=== PATIENT | female | born 1955 | race Caucasian/White ===

== ENCOUNTER 2019-06-18 08:00 | Outpatient (CLI) | payer SELFPAY ==
--- NOTE | 2019-06-19 16:03 | XRAY Report ---
Reason: RIGHT HAND PAIN Procedure Date: 06/18/2019 Accession Number: [id number] / [id number] Procedure: WCP - Hand 3 View RT CPT Code: Final Report FULL RESULT: EXAM: RIGHT HAND RADIOGRAPHY EXAM DATE: 06/18/2019 03:16 PM. CLINICAL HISTORY: RIGHT HAND PAIN. Fall onto right hand. COMPARISON: None. TECHNIQUE: 4 views. FINDINGS: Bones: Acute spiral type fracture of the midshaft of the right third metacarpal with a large 2.9 cm ulnar butterfly fracture fragment which is mildly (3 mm) displaced in the ulnar direction. No overall abnormal angulation. No other fracture or focal bone lesion. Joints: Normal. No subluxations. Soft Tissues: No significant soft tissue swelling. IMPRESSION: Mildly displaced acute spiral fracture of the midshaft of the right third metacarpal with large butterfly fragment. RADIA
== END 2019-06-18 23:59 | disposition home or self-care (01) ==
LOC: DI.WCP 08:00
PROVIDERS: ATTEND Family Medicine
DX: S62.322A Displaced fracture of shaft of third metacarpal bone, right hand, initial encounter for closed fracture (principal)

== ENCOUNTER 2019-07-25 07:45 | Outpatient (CLI) | payer SELFPAY ==
--- NOTE | 2019-07-25 18:33 | XRAY Report ---
Reason: DISPLACED FRACTURE RIGHT HAND METACARPAL Procedure Date: 07/25/2019 Accession Number: [id number] / [id number] Procedure: WCP - Hand 3 View RT CPT Code: Final Report FULL RESULT: PROCEDURE: Hand 3 View RT INDICATIONS: DISPLACED FRACTURE RIGHT HAND METACARPAL TECHNIQUE: 3 views of the hand(s) acquired. COMPARISON: Plain films dated 06.18.19 FINDINGS: Bones: There is a healing mildly displaced comminuted fracture of the midportion of the third metacarpal. Soft tissues: No suspicious soft tissue calcifications. IMPRESSION: Healing third metacarpal fracture. Reviewed by: Mery Barbour MD on 07/25/2019 6:32 PM PDT Approved by: Mery Barbour MD on 07/25/2019 6:32 PM PDT Station ID: [id number]
== END 2019-07-25 23:59 | disposition home or self-care (01) ==
LOC: DI.WCP 07:45
PROVIDERS: ATTEND Orthopaedic Surgery
DX: S62.322D Displaced fracture of shaft of third metacarpal bone, right hand, subsequent encounter for fracture with routine healing (principal)

== ENCOUNTER 2021-04-08 11:07 | Emergency (ER) | payer MEDICARE, OTHER ==
[2021-04-08] MEDS ORDERED: ACETAMINOPHEN 500 MG TABLET PO STA (11:23)
--- NOTE | 2021-04-08 11:24 | ED Physician Documentation ---
PD HPI HEAD INJURY - Stated complaint Stated Complaint: FALL,HEADACHE,NECK PX - Chief complaint Chief Complaint: Trauma Hd/Nk - History obtained from History obtained from: Patient - Additional information Additional information: Slipped and fell on the ice hitting the back of her head on the ground about 45 minutes ago. She has a severe headache. No loss of consciousness. Also complains of upper neck pain. No other injuries. She was also a little worried about her recent cataract repair after hitting her head but her vision is unchanged. Review of Systems Constitutional: denies: Fever, Chills Cardiac: denies: Chest pain / pressure, Palpitations Respiratory: denies: Dyspnea, Cough GI: denies: Nausea Neurologic: reports: Headache, Head injury. denies: LOC PD PAST MEDICAL HISTORY - Past Medical History Cardiovascular: None Respiratory: None Endocrine/Autoimmune: None GI: Diverticulitis : None HEENT: None Psych: None Musculoskeletal: None Derm: None - Past Surgical History General: Cholecystectomy, Colonoscopy /[employer]: section - Present Medications Home Medications: Ambulatory Orders Medication Instructions Recorded Confirmed No Known Home Medications 04/24/13 04/24/13 - Allergies Allergies/Adverse Reactions: Allergies Allergy/AdvReac Type Severity Reaction Status Date / Time No Known Drug Allergies Allergy Verified 04/08/21 11:16 PD ED PE NORMAL - Vitals Vital signs reviewed: Yes - General General: Alert and oriented X 3, No acute distress - HEENT HEENT: PERRL, EOMI - Neck Neck: Other (Mild tenderness to the upper C-spine, on my examination she is in a collar and this is maintained pending imaging.) - Neuro Neuro: Alert and oriented X 3, 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 After the completion of CT imaging she was feeling much better with her headache going now from severe previously to only mild. No persistent neck tenderness and on reexamination after discontinuation of the cervical collar at 12:08 PM she had full range of m otion of her neck. Departure - Departure Disposition: 01 Home, Self Care Clinical Impression: Concussion Qualifiers: Encounter type: initial encounter Loss of consciousness presence/duration: without LOC Qualified Code(s): S06.0X0A - Concussion without loss of consciousness, initial encounter Injury of head and neck Qualifiers: Encounter type: initial encounter Qualified Code(s): S09.90XA - Unspecified injury of head, initial encounter; S19.9XXA - Unspecified injury of neck, initial encounter Condition: Good Record reviewed to determine appropriate education?: Yes Instructions: ED Head Injury Closed
--- NOTE | 2021-04-08 11:49 | CT Report ---
PROCEDURE: HEAD WO INDICATIONS: Fall with head injury. TECHNIQUE: Noncontrast 4.5 mm thick angled axial sections acquired from the foramen magnum to the vertex. For r adiation dose reduction, the following was used: automated exposure control, adjustment of mA and/or kV according to patient size. COMPARISON: None. FINDINGS: Image quality: Excellent. CSF spaces: Basal cisterns are patent. No extra-axial fluid collections. Ventricles are normal in size and shape. Brain: No midline shift. No intracranial masses or hemorrhage. [place]-white matter interface is norm al. Skull and face: Calvarium and visualized facial bones are intact, without suspicious lesions. Left p arietal scalp contusion. Sinuses: Mucosal thickening noted in the left maxillary sinus and the left sphenoid sinus. The mastoi ds are clear. IMPRESSION: No acute intracranial disease process. Reviewed by: Elida Mendoza MD, PhD on 04/08/2021 11:48 AM PST Approved by: lEida Mendoza MD, PhD on 04/08/2021 11:48 AM PST Station ID: [id number]
--- NOTE | 2021-04-08 11:58 | CT Report ---
PROCEDURE: CERVICAL SPINE WO INDICATIONS: Fall with neck injury TECHNIQUE: Noncontrast 3 mm thick sections acquired from the skull base to the T4 level. Sagittal and coronal r eformats were then constructed. For radiation dose reduction, the following was used: automated exp osure control, adjustment of mA and/or kV according to patient size. COMPARISON: None. FINDINGS: Image quality: Excellent. Bones: No fractures or dislocations. Visualized superior ribs are intact. Spine degenerative disc d isease and facet arthropathy are noted. Soft tissues: Prevertebral soft tissues are normal in thickness. No paravertebral hematomas. No ap ical pneumothoraces. IMPRESSION: No fracture. No acute osseous lesion. If there is continued clinical concern for pathology, then MRI should be considered for further evaluation. Reviewed by: Elida Mendoza MD, PhD on 04/08/2021 11:56 AM PST Approved by: Elida Mendoza MD, PhD on 04/08/2021 11:56 AM [facility] Station ID: [id number]
[2021-04-08 12:13] VITALS: BP 114/75
== END 2021-04-08 12:21 | disposition home or self-care (01) ==
LOC: ED 11:07
DX: S06.0X0A Concussion without loss of consciousness, initial encounter (principal); W00.0XXA Fall on same level due to ice and snow, initial encounter
CPT/HCPCS: 70450; 72125; 99282; 99284; A9270